=== PATIENT | female | born 1965 | race Caucasian/White ===

== ENCOUNTER 2017-07-17 12:19 | Emergency (ER) | payer OTHER ==
[~2017-07-17] VITALS: Ht 152.4 cm; Wt 79.4 kg
[~2017-07-17 12:19] MED LIST: ANTIVERT25 M1 PO; METHYLPRED4 MG/DOSE- PO
[2017-07-17] MEDS ORDERED: DIOVAN40 MG (12:56)
== END 2017-07-17 15:57 | disposition home or self-care (01) ==
LOC: ER 12:19
DX: J06.9 Acute upper respiratory infection, unspecified (principal); J11.1 Influenza due to unidentified influenza virus with other respiratory manifestations